=== PATIENT | male | born 1985 | race Caucasian/White ===

== ENCOUNTER → 2024-05-24 11:48 | Outpatient (REF) | payer OTHER, SELFPAY | LOC: RAD 11:48 | PROVIDERS: ATTENDING PHYSICIAN Chiropractor | DX: S22.32XA Fracture of one rib, left side, initial encounter for closed fracture (principal) | CPT/HCPCS: 71101 ==

== ENCOUNTER 2024-10-02 12:41 | Emergency (ER) | payer OTHER, SELFPAY ==
[2024-10-02 12:49] VITALS: BP 127/77
[2024-10-02 12:50] VITALS: BP 127/77
--- NOTE | 2024-10-02 12:50 | ED.GENMED ---
ED Provider Triage
<Atilio Garcia Jr., PA-C - Last Filed: 10/02/24 12:57>
-
Patient seen by provider in Triage?: Seen in Triage
Attestation: A medical screening examination has been initiated by a qualified medical provider. Based on the assessment performed at this time, it has been determined that an emergent medical condition may exist and the patient has been informed
that further medical evaluation and possible additional diagnostic testing may be needed.
HPI: 39-year-old male presenting to the emergency department today with concerns of right sided posterior neck pain started yesterday he claims that it was very uncomfortable and felt himself get lightheaded fall to the ground with shaking according
to his with his arms out spread did not bite his tongue did not urinate. He claims that he is had similar episodes in the past when he was very stressed or in pain. Did not have significant confusion for any extended period of time after
waking up. He is currently asymptomatic. No known history of seizures initial labs CT scan ordered for further assessment.
GENERAL: Alert , in no apparent distress
EYE: No visual abnormalities.
NECK: Trachea midline
ENT: No visible abnormalities.
LUNGS: No acute respiratory distress
NEUROLOGICAL: Alert and oriented
SKIN: Skin intact. No visible changes.
MUSCULOSKELETAL: Moving extremities normally
PSYCH: Normal and appropriate interaction.
This is a medical evaluation conducted in person to initiate diagnostic evaluation and provide initial therapeutics. Please see further documentation by the treating clinician.
History of Present Illness
<Atilio Garcia Jr., PA-C - Last Filed: 10/02/24 12:57>
General
Chief Complaint: Back Pain
Time Seen by Provider: 10/02/24 14:01
<Dany Hadley PA-C - Last Filed: 10/02/24 15:08>
General
Source: patient
History of Present Illness
History of Present Illness:
39-year-old male presents complaining of right sided neck pain and for evaluation for possible passing out for seizure overnight. He was laying in bed and was trying to push his dog away from him in bed and he felt an immediate strain to the right
side of the neck. He states the pain is quite severe. He tried to go back to sleep but was unable to secondary to the pain. While in pain he stood up and tried to go to the bathroom and get Advil however on the way he started feeling very
lightheaded. He developed health and sweatiness. He then fell to the ground. His was there and noticed that he was having some convulsions while on the ground but as soon as those stopped he came to and was able to have a conversation.
There is no urinary incontinence. He did not bite his tongue. He eventually got back into bed and had another episode similar to this. He denies headache or vision change. He remembers having symptoms prior to and after these episodes. No
numbness to the arms or chest pain or shortness of breath. No other complaints at this time
Phy Exam
<Dany Hadley PA-C - Last Filed: 10/02/24 15:08>
Physical Exam
Physical Exam:
General: Well-appearing male no acute respiratory distress
HEENT normocephalic atraumatic pupils equal round reactive to light extraocular's are intact TMs normal tongue is symmetric without any trauma
Heart: Regular rate and rhythm no murmurs lungs: Clear no wheeze
Neurologic exam alert and oriented normal gait good strength to the upper and lower extremities musculoskeletal exam: There is no midline tenderness over the cervical spine. There is
Some stiffness of the right side of the neck and tenderness to the paraspinous area in the area of the trapezius muscle. He is reluctant to lateral bend to the right dorsalis this reproduces his pain. He has good rotation to the left and good
flexion otherwise.
Course
<Atilio Garcia Jr., PA-C - Last Filed: 10/02/24 12:57>
Orders/Labs/Results
Orders:
Orders
10/02/24 12:52
Urinalysis Reflex To Culture Urgent
Date Specimen was Collected: 10/02/24
Time Specimen was Collected: 13:45
10/02/24 12:53
Electrocardiogram (*1) Stat
Reason for Study: Abdominal Pain
CT Head W/o Iv Contrast Urgent
Comment:
Reason For Exam: seizure like activity? right neck pain?
EKG- Treatment ONCE
10/02/24 13:07
Complete Blood Count/With Diff Urgent
Comprehensive Metabolic Panel Urgent
Lactic Acid Urgent
Abnormal Lab Results
10/02/24
13:07
Absolute Lymphs (auto) 0.8 L 10^3/uL
(1.2-3.4)
Neutrophils % 80.6 H %
(42.2-75.2)
Lymphocytes % 11.6 L %
(20.5-51.1)
Glucose 116 H mg/dl
(70-99)
10/02/24 13:07
10/02/24 13:07
Vital Signs
Initial and Last Documented VS:
Initial Vital Signs
Temp Pulse Resp BP Pulse Ox
98.4 F 68 16 127/77 100
10/02/24 12:49 10/02/24 12:49 10/02/24 12:49 10/02/24 12:49 10/02/24 12:49
Last Documented Vital Signs
Temp Pulse Resp BP Pulse Ox
98.4 F 94 16 127/77 100
10/02/24 12:50 10/02/24 12:50 10/02/24 12:50 10/02/24 12:50 10/02/24 12:50
Adamlt;Dany Hadley PA-C - Last Filed: 10/02/24 15:08>
Orders/Labs/Results
Orders:
Orders
10/02/24 12:52
Urinalysis Reflex To Culture Urgent
Date Specimen was Collected: 10/02/24
Time Specimen was Collected: 13:45
10/02/24 12:53
Electrocardiogram (*1) Stat
Reason for Study: Abdominal Pain
CT Head W/o Iv Contrast Urgent
Comment:
Reason For Exam: seizure like activity? right neck pain?
EKG- Treatment ONCE
10/02/24 13:07
Complete Blood Count/With Diff Urgent
Comprehensive Metabolic Panel Urgent
Lactic Acid Urgent
Abnormal Lab Results
10/02/24
13:07
Absolute Lymphs (auto) 0.8 L 10^3/uL
(1.2-3.4)
Neutrophils % 80.6 H %
(42.2-75.2)
Lymphocytes % 11.6 L %
(20.5-51.1)
Glucose 116 H mg/dl
(70-99)
10/02/24 13:07
10/02/24 13:07
Vital Signs
Initial and Last Documented VS:
Initial Vital Signs
Temp Pulse Resp BP Pulse Ox
98.4 F 68 16 127/77 100
10/02/24 12:49 10/02/24 12:49 10/02/24 12:49 10/02/24 12:49 10/02/24 12:49
Last Documented Vital Signs
Temp Pulse Resp BP Pulse Ox
98.4 F 94 16 127/77 100
10/02/24 12:50 10/02/24 12:50 10/02/24 12:50 10/02/24 12:50 10/02/24 12:50
Adamlt;Dany Hadley PA-C - Last Filed: 10/02/24 15:08>
MDM/Problems Addressed
Differential Diagnosis Includes:
Patient seen initially at triage and workup was initiated. I reviewed their note. CT of the head was performed which I personally reviewed and pending radiology read. No obvious acute finding by provider. EKG shows sinus rhythm without ischemic
changes. Labs reviewed electrolytes normal. No anemia.
Symptoms could be consistent with vasovagal syncope with convulsive motions versus seizure however there is no postictal phase. He had preceding symptoms. I suspect his symptoms were related to his pain that he was having in his neck causing a
vasovagal episode. He has had similar symptoms like this in the past with various pain episodes.
<Dany Hadley PA-C - Last Filed: 10/02/24 15:08>
*Critical Care Note
Total Time (30-74mins, 75-104mins- exclusive of procedures): Not Applicable
<Dany Hadley PA-C - Last Filed: 10/02/24 15:08>
Update Note
Update Note:
CT head officially negative. Patient reassured. Berenice suspect vasovagal episode over seizure. Also suspect cervical strain. Recommended warm compresses and continued use of NSAIDs. Stable for discharge
ED Attending Note
<Atilio Garcia Jr., PA-C - Last Filed: 10/02/24 12:57>
-
Portions of this chart may have been created with voice recognition software.� Occasional wrong word or��sound alike� substitutions may have occurred due to the inherent limitations of voice recognition software.
Discharge Plan
Departure
Patient Disposition: Home (Routine Discharge)
Date of Disposition: 10/02/24
Time of Disposition: 15:06
Patient with high blood pressure during this ER visit?: No
Discharge Problem:
Cervical strain, Vasovagal syncope
Instructions: Cervical Sprain ED
Activity Restrictions/Additional Instructions:
Continue with warm compresses. Use ibuprofen as needed for pain. Return if needed, otherwise follow up with PMD
Interventions
Interventions:
ED- Fall Risk Assessment Last Done: 10/02/24 13:46
ED-Musculoskeletal Assessment Last Done: 10/02/24 13:46
Discharge Date and Time
Print Language: [id number]
[2024-10-02 13:25] LABS: % Basophils 0.4 % (0-2); % Eosinophils 0.6 % (0-6); % Immature Granulocytes 0.3 % (0-0.5); % Lymphocytes 11.6 % (20.5-51.1); % Monocytes 6.5 % (1.7-9.3); % Neutrophils 80.6 % (42.2-75.2); Absolute Lymphocytes 0.8 10^3/uL (1.2-3.4); Absolute Monocytes 0.5 10^3/uL (0.1-0.6); Absolute Neutrophils 5.7 10^3/uL (1.4-6.5); Hematocrit 41.8 % (39.0-52.0); Hemoglobin 14.1 g/dL (13.0-18.0); Mean Corp Hgb Conc. 33.7 g/dL (33.0-37.0); Mean Corpuscular Hgb 29.6 pg (27.0-31.0); Mean Corpuscular Volume 87.8 fL (80.0-94.0); Mean Platelet Volume 9.2 fL (7.4-10.4); Nucleated Red Blood Cells % 0 % (-); Platelet Count 307 10^3/uL (130-400); Red Blood Cell Count 4.76 10^6/uL (4.70-6.10); Red Cell Dist. Width 13.1 % (11.5-14.5); White Blood Cell Count 7.1 10^3/uL (4.8-10.8)
[2024-10-02 13:35] LABS: Lactic Acid 1.2 mmol/L (0.7-2.0)
[2024-10-02 13:36] LABS: ALT (SGPT) 47 U/L (0-50); AST (SGOT) 31 U/L (17-59); Albumin 4.7 g/dl (3.5-5.0); Alkaline Phosphatase 58 U/L (38-126); Blood Urea Nitrogen 18 mg/dl (9-20); Calcium 9.7 mg/dl (8.4-10.2); Carbon Dioxide 26 mmol/L (22-30); Chloride 100 mmol/L (98-107); Glucose 116 mg/dl (70-99); Potassium 4.2 mmol/L (3.5-5.1); Sodium 135 mmol/L (135-145); Total Bilirubin 0.7 mg/dl (0.2-1.3); Total Protein 7.2 g/dl (6.3-8.2); eGFR > 60.00
== END 2024-10-02 15:35 | disposition home or self-care (01) ==
LOC: EMR 12:41
PROVIDERS: Physician Assistant; EMERGENCY PHYSICIAN Emergency Medicine
DX: S16.1XXA Strain of muscle, fascia and tendon at neck level, initial encounter (principal); R55 Syncope and collapse; W19.XXXA Unspecified fall, initial encounter
CPT/HCPCS: 99283; 70450; 80053; 83605; 85025; 93005